=== PATIENT | female | born 1960 | race African-American/Black ===

== ENCOUNTER 2023-06-27 08:50 | Emergency (ER) | payer BC, SELFPAY ==
--- NOTE | ~2023-06-27 | XR_ITS ---
EXAMINATION: XR cervical spine 4-5V DATE: 06/27/2023 09:33 INDICATION: Right neck pain. TECHNIQUE: 4 views of cervical spine were obtained. COMPARISON: None. FINDINGS: There is kyphosis of upper cervical spine. There is 4 degrees levocurvature of cervical spi ne. Vertebral body heights are normal. There is mildly decreased disc height from C3-C4 through C5-C6 . There is multilevel uncovertebral joint osteoarthritis, severe on the left at C4-C5 and C5-C6. Ther e is multilevel mild facet joint osteoporosis. There is mild central canal stenosis at C5-C6. No prev ertebral soft tissue swelling. IMPRESSION: 1. Moderate cervical spondylosis. Reviewed, dictated and finalized at location A.
[2023-06-27 09:05] VITALS: BP 149/96; PULSE 93; RESP 16; TEMP 36.7; O2SAT 99
--- NOTE | 2023-06-27 09:16 | ED.NECK ---
HPI - Neck Pain/Injury General Chief Complaint: Neck Pain/Injury Stated Complaint: NECK PAIN Time Seen by Provider: 06/27/23 09:16 Source: patient Mode of arrival: ambulatory Limitations: no limitations History of Present Illness HPI Narrative: 62 y/o female presented for c/o right sided neck pain for at least 2 weeks. States at onset she woke with a 'kink' in the neck. States she was seen by her PCP for this, prescribed steroid, muscle relaxer and ibuprofen but denies improvement. Pain is also to the right upper back (trap) and into the shoulder. Denies injury. Denies decreased ROM, numbness, tingling or weakness of the RUE. Reports left hand tingling briefly this morning. Related Data Home Medications Medication Instructions Recorded Confirmed amlodipine 5 mg tablet mg 06/27/23 atorvastatin 20 mg tablet mg 06/27/23 cyclobenzaprine 10 mg tablet mg 06/27/23 ibuprofen 800 mg tablet mg 06/27/23 prednisone 20 mg tablet mg 06/27/23 Allergies Allergy/AdvReac Type Severity Reaction Status Date / Time No Known Allergies Allergy Verified 06/27/23 09:10 Review of Systems Review of Systems: CONSTITUTIONAL: Denies body aches, fever, chills, or sweats. CARDIOVASCULAR: Denies chest pain, palpitations, or edema. RESPIRATORY: Denies cough or dyspnea. GASTROINTESTINAL: Denies abdominal pain, nausea, vomiting, or diarrhea. SKIN: Denies rash, itching, or wounds. MUSCULOSKELETAL: Reports right neck and upper back pain NEUROLOGIC: Denies headache, numbness, tingling, or weakness. All systems reviewed & are unremarkable except as noted in HPI and below [facility] Past Medical History Medical History (Updated 06/27/23 @ 09:29 by Arielle Levine, RIAZ) HTN (hypertension) Comments At time of signature, I have reviewed and agree with nursing past medical, surgical, social and family history unless otherwise noted. Please see nursing chart for further information. There is no relevant family history pertinent to the presenting complaint Exam Narrative: GENERAL: Well-appearing HEAD: Normocephalic, atraumatic. NECK: Slightly decreased AROM reporting pain when turning head to right and extension. No vpt no step off. Supple. No lymphadenopathy. CHEST: No respiratory distress. Clear to auscultation. HEART: Regular rate and rhythm. No murmur appreciated. Normal peripheral pulses. MUSCULOSKELETAL: Right para spinal tenderness to c-spine, right trap, and right mid deltoid tender with palpation. No bony tenderness. EXTREMITIES: Normal range of motion; reports right neck pain with overhead extension of BUEs. SKIN: Warm, dry, no rash. Capillary refill normal. Normal skin turgor. NEURO: No focal deficits. Alert and oriented x3. Gait steady. PSYCH: Normal affect. Course Course Emergency Course: Patient is aware of diagnosis, understands and agrees to treatment plan. Anticipatory guidance given. Patient agrees to follow-up as directed and is aware of reasons to seek care at the emergency department. Portions of this record may have been created with voice recognition software Level of Care: Express Care Visit Vital Signs Vital signs: Vital Signs Temperature 98.1 F 06/27/23 09:05 Pulse Rate 93 06/27/23 09:05 Respiratory Rate 16 06/27/23 09:05 Blood Pressure 149/96 H 06/27/23 09:05 Pulse Oximetry 99 06/27/23 09:05 Temperature 98.1 F 06/27/23 09:05 Pulse Rate 93 06/27/23 09:05 Respiratory Rate 16 06/27/23 09:05 Blood Pressure 149/96 H 06/27/23 09:05 Pulse Oximetry 99 06/27/23 09:05 MDM - Neck Pain/Injury MDM Narrative Medical decision making narrative: Symptoms of C-spine x-ray reviewed with patient. Patient has completed steroids, muscle relaxer, and ibuprofen. Advised close follow-up with PCP for possible PT etc. Discussed physical exam findings. Advised supportive measures and signs/symptoms to go to the ER. Pt is appropriate for outpt treatment and f/u. Differentia
== END 2023-06-27 10:11 | disposition home or self-care (01) ==
PROVIDERS: Emergency Provider Nurse Practitioner Family; PCP Emergency Medicine
DX: S16.1XXA Strain of muscle, fascia and tendon at neck level, initial encounter (principal); X58.XXXA Exposure to other specified factors, initial encounter; I10 Essential (primary) hypertension
CPT/HCPCS: 72050; 99213; G0463

== ENCOUNTER 2023-07-26 10:43 | Emergency (ER) | payer BC, SELFPAY ==
[2023-07-26] VITALS (17 sets, daily range): BP systolic 113–148; BP diastolic 80–97; PULSE 57–75; RESP 9–20; TEMP 36.6; O2SAT 98–100
--- NOTE | ~2023-07-26 | XR_ITS ---
EXAMINATION: XR chest 2V DATE: 07/26/2023 12:21 INDICATION: Dyspnea on exertion. TECHNIQUE: Frontal and lateral views of the chest were obtained. COMPARISON: None. FINDINGS: There is no pneumonia, pleural effusion, or pneumothorax. The heart size is normal. IMPRESSION: 1. No acute cardiopulmonary disease. Reviewed, dictated and finalized at location A.
--- NOTE | 2023-07-26 11:18 | ECG_ITS ---
SEE SCANNED COPY FOR CONFIRMED REPORT MTDD
[2023-07-26 11:33] LABS: Basophils Percent Auto 0.4 % (0.2-1.2); Eosinophils Absolute Auto 0.1 K/mm3 (0-0.3); Eosinophils Percent Auto 1.9 % (0-4.4); Hematocrit 40.8 % (37.0-47.0); Hemoglobin 14.1 g/dL (12.0-15.0); Immature Granulocyte Absolute 0.04 K/mm3 (0.00-0.031); Immature Granulocyte Percent A 0.6 % (0-0.5); Lymphocytes Absolute Auto 3.16 K/mm3 (0.9-3.2); Lymphocytes Percent Auto 46.8 % (18.3-44.2); Mean Corpuscular HGB Conc 34.6 g/dl (32-36); Mean Corpuscular Hemoglobin 29.9 pg (26-34); Mean Corpuscular Volume 86.6 fl (80-100); Mean Platelet Volume 9.8 fl (7.4-10.4); Monocytes Absolute Auto 0.5 K/mm3 (0.1-0.6); Monocytes Percent Auto 6.8 % (2.6-8.5); Neutrophils Absolute Auto 2.9 K/mm3 (1.3-6.7); Neutrophils Percent Auto 43.5 % (45.5-73.1); Platelet Count Result 257 k/mm3 (150-375); Red Blood Count 4.71 M/mm3 (4.2-5.4); Red Cell Distribution Width 13.2 % (11.5-14.5); White Blood Count 6.8 K/mm3 (4.5-10.0)
[2023-07-26 11:43] LABS: Alanine Aminotransferase 16 U/L (6-35); Albumin Level 4.8 g/dL (3.5-5.1); Alkaline Phosphatase 80 U/L (38-126); Anion Gap 7 mmol/L (4-12); Aspartate Amino Transferase 20 U/L (14-36); Bilirubin,Total 0.4 mg/dL (0.2-1.3); Blood Urea Nitrogen 7 mg/dL (7-17); Carbon Dioxide 27 mmol/L (22-30); Chloride 107 mmol/L (98-107); Estimated CRCL calculation 78 ml/min; Estimated Glomerular Filt Rate > 60; Glucose 90 mg/dL (65-110); Potassium 3.5 mmol/L (3.4-5.0); Sodium 141 mmol/L (137-145)
[2023-07-26 12:31] LABS: Magnesium 1.8 mg/dL (1.6-2.3)
[2023-07-26 12:37] LABS: NT Pro B Type Natriuretic Pept < 20 pg/mL (19.9-100)
[2023-07-26 12:39] LABS: Troponin I 0.133 ng/mL (0.000-0.034)
--- NOTE | 2023-07-26 14:29 | ECG_ITS ---
SEE SCANNED COPY FOR CONFIRMED REPORT MTDD
[2023-07-26 15:00] LABS: Troponin I 0.127 ng/mL (0.000-0.034)
--- NOTE | 2023-07-26 15:50 | ED.DIZZY ---
HPI - Dizziness General Chief Complaint: Dizziness Stated Complaint: dizziness for 2 weeks Time Seen by Provider: 07/26/23 11:28 History of Present Illness HPI Narrative: This is a 62-year-old female, with history of hypertension reported history of coronary artery thickening, who presents emergency department complaining of dyspnea on exertion. The patient states with the past 2 weeks, she has be, short of breath with walking short distances. This is associated with some lightheadedness, though she denies chest pain, shortness of breath at rest, fevers, chills, cough or bleeding. She denies recent change in medications or other recent change in health. She has no other complaints at this time. Related Data Home Medications Medication Instructions Recorded Confirmed amlodipine 5 mg tablet 5 mg PO DAILY 06/27/23 06/27/23 atorvastatin 20 mg tablet 20 mg PO DAILY 06/27/23 06/27/23 cyclobenzaprine 10 mg tablet 10 mg PO PRN PRN Spasms 06/27/23 06/27/23 ibuprofen 800 mg tablet 800 mg PO QID PRN Pain, Mild 06/27/23 06/27/23 prednisone 20 mg tablet 20 mg PO USEASDIRECTD 06/27/23 06/27/23 Allergies Allergy/AdvReac Type Severity Reaction Status Date / Time No Known Allergies Allergy Verified 07/26/23 10:44 Review of Systems Review of Systems: All systems reviewed & are unremarkable except as noted in HPI and below (HPI) PMFSH Past Medical History Medical History Coronary artery disease HTN (hypertension) Surgical History Surgical History No significant past surgical history Social History Social History Smoking status: Current some day smoker Alcohol intake: never Substance use: never Exam Narrative: GENERAL: Well-developed, well-nourished, and in no acute distress. HEAD: Normocephalic, atraumatic. EYES: PERRLA and EOMI. CHEST: Clear to auscultation. No respiratory distress. No wheezes rales or rhonchi HEART: Regular rate and rhythm. No murmur heard. Normal peripheral pulses. ABDOMEN: Soft, nontender, nondistended, normal active bowel sounds. EXTREMITIES: Normal range of motion. No edema. SKIN: Warm, dry, no rash. NEURO: Alert and oriented x3. No focal deficit. Moving all 4 limbs spontaneously PSYCH: Normal mood and affect. Course Course Emergency Course: 14:26 - CBC unremarkable. Chemistries within normal limits. EKG not concerning for ischemia. BNP negative. Initial troponin elevated at 0.133. I suspect the patient has dyspnea on exertion is an anginal equivalent. I advised admission with Cardiology consultation. The patient voiced hesitation in preference for discharge. We agreed on a repeat troponin and further discussion. Chest x-ray unremarkable. 15:40 - Repeat troponin decreasing to 0.127. I again recommended admission to the patient who politely declines. I advised close primary care and cardiology follow-up. Will discharge against medical advice. Discussed return and emergency precautions including signs/symptoms of ACS in respiratory distress. The patient voiced understanding and agreement with the plan. All questions answered to her satisfaction. Vital Signs Vital signs: Vital Signs Temperature 98 F 07/26/23 10:44 Pulse Rate 75 07/26/23 10:44 Respiratory Rate 18 07/26/23 10:44 Blood Pressure 148/80 H 07/26/23 10:44 Pulse Oximetry 98 07/26/23 10:44 Oxygen Delivery Room Air 07/26/23 10:44 Temperature 98 F 07/26/23 10:44 Pulse Rate 67 07/26/23 12:46 Respiratory Rate 11 L 07/26/23 12:46 Blood Pressure 113/97 H 07/26/23 12:46 Pulse Oximetry 100 07/26/23 12:46 Oxygen Delivery Room Air 07/26/23 10:44 MDM - Dizziness MDM Narrative Medical decision making narrative: Plan: Labs, EKG, troponin, imaging, reassess Differential Diagnosis Differential diagnosis: Likely other (AC
== END 2023-07-26 16:04 | disposition left against medical advice (07) ==
PROVIDERS: Emergency Provider Preventive Medicine Aerospace Medicine; PCP Emergency Medicine
DX: R06.00 Dyspnea, unspecified (principal); I10 Essential (primary) hypertension; I25.10 Atherosclerotic heart disease of native coronary artery without angina pectoris; F17.200 Nicotine dependence, unspecified, uncomplicated; R79.89 Other specified abnormal findings of blood chemistry; R94.31 Abnormal electrocardiogram [ECG] [EKG]
CPT/HCPCS: 36415; 71046; 80053; 83735; 83880; 84484; 85025; 93005; 99284